=== PATIENT | male | born 1990 | race Caucasian/White ===

== ENCOUNTER 2016-10-12 13:18 | Inpatient (IN) | payer OTHER ==
[~2016-10-12] VITALS: Ht 180.3 cm; Wt 117.0 kg
[~2016-10-12 13:18] MED LIST: LEVO500T15 PO; METR500T PO; ONDA4TAB5 PO; PANT20TA2 PO
[2016-10-12] MEDS ORDERED: IV NORMAL SALINE 1000 ML BAG IV ONE (14:00)
[2016-10-12] MEDS ORDERED: ONDANSETRON 4 MG/2 ML VIAL IV ONE ×2 (14:00)
[2016-10-12] MEDS ORDERED: MORPHINE SULFATE 2 MG/1 ML DISP.SYRIN IV ONE (14:00)
[2016-10-12] MEDS ORDERED: MORPHINE SULFATE 2 MG/1 ML DISP.SYRIN ONE (14:22)
[2016-10-12] MEDS ORDERED: ONDANSETRON 4 MG/2 ML VIAL ONE (14:22)
[2016-10-12 14:29] LABS: BASOPHILS # (AUTO) 0.4 K/uL (0.0-8.0); BASOPHILS % (AUTO) 2.9 % (0.0-2.0); HEMATOCRIT 51.4 % (40-50); HEMOGLOBIN 17.7 G/DL (14.0-18.0); LYMPHOCYTES # (AUTO) 2.4 K/UL (0.8-4.8); LYMPHOCYTES % (AUTO) 17.7 % (20.5-51.5); MEAN CORPUSCULAR HEMOGLOBIN 30.1 UUG (27.0-31.0); MEAN CORPUSCULAR HGB CONC 34 g/dL (32.0-37.0); MEAN CORPUSCULAR VOLUME 87.4 FL (82.0-92.0); MONOCYTES # (AUTO) 0.7 K/UL (0.1-1.30); MONOCYTES % (AUTO) 4.8 % (0.0-11.0); NEUTROPHILS # (AUTO) 10.1 K/UL (1.8-8.9); NEUTROPHILS % (AUTO) 74.6 % (38.5-71.5); PLATELET COUNT (AUTO) 342 K/UL (150-450); RED BLOOD CELL COUNT(AUTO) 5.88 MIL/UL (4.7-6.1); WHITE BLOOD COUNT (AUTO) 13.6 K/UL (4.0-11.2)
[2016-10-12 14:34] LABS: POTASSIUM 3.7 mmol/L (3.5-5.1)
[2016-10-12 14:40] LABS: BILIRUBIN,DIRECT 0.1 mg/dL (0.0-0.2); BILIRUBIN,TOTAL 0.5 mg/dL (0.2-1.0); TOTAL PROTEIN, SERUM 7.3 g/dL (6.4-8.2)
[2016-10-12 15:16] LABS: *BLOOD, URINE NEGATIVE (NEGATIVE); *COLOR,URINE YELLOW (YELLOW); *KETONES,URINE 4+ (NEGATIVE); *PROTEIN,URINE 2+ (NEGATIVE); LEUKOCYTE ESTERASE ,URINE NEGATIVE (NEGATIVE); NITRITE, URINE NEGATIVE (NEGATIVE); PH,URINE >=9.0 (5.0-8.0); UGLUCOSE NEGATIVE (NEGATIVE)
[2016-10-12] MEDS ORDERED: METOCLOPRAMIDE HCL 10 MG/2 ML VIAL IV ONE (15:30)
[2016-10-12] MEDS ORDERED: diphenhydrAMINE 50 MG/1 ML VIAL IV ONE (15:30)
[2016-10-12 15:40] LABS: *BILIRUBIN,URIN NEGATIVE (NEGATIVE); *CLARITY,URINE SLIGHTLY HAZY (CLEAR)
[2016-10-12 15:42] LABS: MUCUS,URINE MANY /LPF (0-FEW); RBC,URINE 0-3 /HPF (0-3); SQUAMOUS EPITHELIAL CELL,UR FEW /HPF (NONE SEEN)
[2016-10-12] MEDS ORDERED: HYDROMORPHONE 1 MG/1 ML DISP.SYRIN IV ONE (15:45)
[2016-10-12] MEDS ORDERED: diphenhydrAMINE 50 MG/1 ML VIAL ONE (16:14)
[2016-10-12] MEDS ORDERED: METOCLOPRAMIDE HCL 10 MG/2 ML VIAL ONE (16:14)
[2016-10-12] MEDS ORDERED: HYDROMORPHONE 1 MG/1 ML DISP.SYRIN ONE (16:16)
[2016-10-12] MEDS ORDERED: NORCO PO (16:33)
--- NOTE | 2016-10-12 17:00 | NUR ---
NEW PATIENT FROM ER TO ROOM 216 AWAKE ALERT COOPERATE WELL NO PAIN OR N/V AT THIS TIME CALL SYSTEM INSTRUCTION AND CALL LIGHT WITHIN REACH
[2016-10-12 17:21] VITALS: BP 109/63
--- NOTE | 2016-10-12 17:30 | NUR ---
DR BLAKE FRENCH SEE PATIENT AND LAB RESULT AND ORDER IN CHART KEEP NPO
[2016-10-12] MEDS ORDERED: IV NS 1000 ML 1,000 ML IV PRN (17:47)
[2016-10-12] MEDS ORDERED: MORPHINE SULFATE 2 MG/1 ML DISP.SYRIN IV PRN (18:00)
[2016-10-12] MEDS ORDERED: MAGNESIUM HYDROXIDE 30 ML LIQUID UDC PO PRN (18:00)
[2016-10-12] MEDS ORDERED: ONDANSETRON 4 MG/2 ML VIAL IV PRN (18:00)
[2016-10-12] MEDS ORDERED: ACETAMINOPHEN 325 MG TABLET PO PRN (18:00)
--- NOTE | 2016-10-12 18:30 | NUR ---
EAT DINNER FULL LIQ MOD AMT NO N/V OR PAIN AT THIS TIME IVF START ORDER
[2016-10-12 19:00] VITALS: BP 106/52
--- NOTE | 2016-10-12 20:18 | NUR ---
PATIENT WENT AMA, STATED HE HAS FAMILY EMERGENCY. LAY OBRIEN NOTIFIED. TAKEN ALL BELONGINGS.
[2016-10-13] MEDS ORDERED: PANTOPRAZOLE SODIUM 40 MG TABLET.DR PO SCH (07:00)
== END 2016-10-12 20:15 | disposition left against medical advice (07) | DRG 282 ==
LOC: ER 13:22 → MED 16:41
PROVIDERS: ADMIT Nurse Practitioner Acute Care; ATTEND Nurse Practitioner Acute Care
DX: K85.90 Acute pancreatitis without necrosis or infection, unspecified (principal); E86.0 Dehydration; Z98.1 Arthrodesis status; G89.4 Chronic pain syndrome; G43.A0 Cyclical vomiting, in migraine, not intractable; K21.9 Gastro-esophageal reflux disease without esophagitis; Z87.11 Personal history of peptic ulcer disease; K29.70 Gastritis, unspecified, without bleeding; F43.9 Reaction to severe stress, unspecified; F12.90 Cannabis use, unspecified, uncomplicated; E66.9 Obesity, unspecified; F17.210 Nicotine dependence, cigarettes, uncomplicated; K62.89 Other specified diseases of anus and rectum
CPT/HCPCS: 36415; 83690; 85025; J1170; J1200; J2270; J2405; J2765; J7030

== ENCOUNTER 2018-01-08 19:34 | Emergency (ER) | payer MEDICAID, OTHER ==
[~2018-01-08] VITALS: Ht 180.3 cm; Wt 115.7 kg
[~2018-01-08 19:34] MED LIST changes: -LEVO500T15 PO; -METR500T PO; -ONDA4TAB5 PO
--- NOTE | 2018-01-08 19:55 | NUR ---
MD ADAM AT BEDSIDE FOR MSE
--- NOTE | 2018-01-08 20:15 | NUR ---
Patient discharged to home in stable conditon. Written and verbal after care instructions given. Patient verbalizes understanding of instructions. Patient able to ambulate unassisted with a steady gait. Patient left with all personal belongings.
[2018-01-08 20:20] VITALS: BP 118/82
== END 2018-01-08 20:15 | disposition home or self-care (01) ==
LOC: ER 19:36
DX: L03.012 Cellulitis of left finger (principal); F17.200 Nicotine dependence, unspecified, uncomplicated
CPT/HCPCS: A4663